=== PATIENT | female | born 1990 ===

== ENCOUNTER 2023-10-13 06:00 | Day surgery (SDC) | payer OTHER ==
[2023-10-08 09:11] LABS: PH,URINE 7.5 (5.0-8.0); URINE APPEARANCE Clear; URINE BILIRRUBIN Negative (NEGATIVE); URINE BLOOD Negative; URINE COLOR Yellow; URINE GLUCOSE Negative (NEGATIVE); URINE LEUKOCYTE Small; URINE NITRATE Negative; URINE PROTEIN Negative (NEGATIVE); URINE UROBILINOGEN 0.2 E.U./dl
[2023-10-08 09:13] LABS: HEMATOCRIT 41.9 % (36.0-45.00); HEMOGLOBIN 14.5 g/dL (12.0-15.00); MEAN CELL VOLUME 90.3 fL (80.00-100.00); MEAN CORPUSCULAR HEMOGLOBIN 31.1 pg (27.00-32.0); MEAN CORPUSCULAR HGB CONC 34.5 g/dl (32.0-36.0); PLATELET COUNT 217 K/uL (150-450); RED BLOOD COUNT 4.65 M/uL (4.00-6.00); RED CELL DISTRIBUTION WIDTH 12.9 % (11.5-14.5)
[2023-10-08 09:15] LABS: URINE BACTERIA 1187.9 uL (0.0-1933); URINE EPITHELIAL CELLS 27.4 uL (0.0-38.8); URINE WBC 9.7 uL (0.0-23.2)
[2023-10-08 09:27] LABS: URINE RBC 1.7 uL (0.0-20.8)
[2023-10-08 09:53] LABS: INR 0.99; PARTIAL THROMBOPLASTIN TIME 29.2 SECONDS (22.0-34.0); PROTHROMBIN TIME 10.4 SECONDS (9.0-11.5)
[2023-10-13] MEDS ORDERED: CEFAZOLIN SODIUM 1,000 MG VIAL ONE (13:04)
[2023-10-13] MEDS ORDERED: SUGAMMADEX SODIUM 200 MG/2 ML VIAL IV ONE ×2 (14:11→14:30)
[2023-10-13] MEDS ORDERED: CEFAZOLIN SODIUM 1,000 MG VIAL IV ONE (14:15)
[2023-10-13] MEDS ORDERED: MEPERIDINE HCL/PF 50 MG/ML VIAL IM STA (14:54)
== END 2023-10-13 17:40 | disposition home or self-care (01) ==
LOC: CIR.AMB 06:00
PROVIDERS: ATTEND Obstetrics & Gynecology
DX: Z30.2 Encounter for sterilization (principal)